=== PATIENT | female | born 1965 | race Caucasian/White ===

== ENCOUNTER 2016-06-08 11:56 | Emergency (ER) | payer OTHER ==
[2016-06-08 12:03] VITALS: BP 129/89; PULSE 69; TEMP 97.7; BMI 22.3
--- NOTE | 2016-06-08 13:17 | PDOC ---
History of Present Illness - General Chief Complaint: Rash Stated Complaint: BODY ITCH Time Seen by Provider: 06/08/16 12:22 History Source: Patient Exam Limitations: No Limitations - History of Present Illness Initial Comments: 06/08/16 13:12 Patient is here with complaints of bodyaches 2 months. States has used multiple medications, has used antihistamines and creams with minimal resolved. Denies any fever, ear or throat pain, however states feels has some pain and burning with her urine for the past 2 days. Denies fever nausea or vomiting. Denies vaginal drainage. Has appointment with special forces officer on Friday Timing/Duration: reports: constant, changing over time Severity: Yes: mild, moderate Location: reports: extremities (I merrily extremities, none on torso some itching to back.) Associated Symptoms: reports: change in skin texture. denies: blisters, fever, flushing, headache, hives, malaise, nasal congestion Past History - Travel Traveled outside of the country in the last 30 days: No Close contact w/someone who was outside of country & ill: No - Past Medical History Allergies/Adverse Reactions: Allergies Allergy/AdvReac Type Severity Reaction Status Date / Time No Known Allergies Allergy Verified 06/08/16 12:02 Home Medications: Ambulatory Orders Hydroxyzine HCl [Atarax -] 25 mg PO TID #21 tablet 06/08/16 Sulfamethoxazole/Trimethoprim [Bactrim *Ds*] 1 each PO BID #7 tablet 06/08/16 Other medical history: denies - Psycho/Social/Smoking Cessation Hx Suicidal Ideation: No Smoking History: Never smoked Information on smoking cessation initiated: No Hx Alcohol Use: No Drug/Substance Use Hx: No Substance Use Type: None Review of Systems - Review of Systems Able to Perform ROS?: Yes Is the patient limited Samoan proficient: Yes Constitutional: Yes: Symptoms Reported, See HPI, Malaise. No: Chills, Fever, Loss of Appetite HEENTM: Yes: See HPI. No: Symptoms Reported, Nose Pain, Nose Congestion Respiratory: Yes: See HPI. No: Symptoms reported, Cough, Shortness of Breath, Wheezing Musculoskeletal: Yes: See HPI. No: Symptoms Reported Integumentary: Yes: Symptoms Reported, See HPI, Pruritus, Rash Neurological: No: Symptoms reported All Other Systems: Reviewed and Negative *Physical Exam - Vital Signs Last Vital Signs Temp Pulse Resp BP Pulse Ox 97.7 F 69 18 129/89 98 06/08/16 12:00 06/08/16 12:00 06/08/16 12:00 06/08/16 12:00 06/08/16 12:00 - Physical Exam General Appearance: Yes: Nourished, Appropriately Dressed, Apparent Distress HEENT: positive: ROXY, Normal ENT Inspection, TMs Normal, Pharynx Normal Neck: positive: Supple. 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, Fully Oriented, Alert, Normal Mood/ Affect, Normal Response, Motor Strength 5/5 *DC/Admit/Observation/Transfer Diagnosis at time of Disposition: Pruritus Urinary tract infection Qualifiers: Urinary tract infection type: acute cystitis Hematuria presence: without hematuria Qualified Code(s): N30.00 - Acute cystitis without hematuria - Discharge Dispostion Disposition: HOME Condition at time of disposition: Stable Admit: No - Prescriptions Prescriptions: Hydroxyzine HCl [Atarax -] 25 mg PO TID #21 tablet Sulfamethoxazole/Trimethoprim [Bactrim *Ds*] 1 each PO BID #7 tablet - Referrals Referrals: Aurora Antonio [Primary Care Provider] - - Patient Instructions Printed Discharge Instructions: Urinary Tract Infection Additional Instructions: Chronic pruritus, will treat with Atarax Mild urinary Tract infection, will treat with Bactrim for 4 days total - Post Discharge Activity Work/School Note: Back to Work
[2016-06-08 13:23] LABS: URINE APPEARANCE CLEAR; URINE BILIRUBIN NEGATIVE (NEGATIVE); URINE BLOOD NEGATIVE (NEGATIVE); URINE COLOR YELLOW; URINE GLUCOSE (UA) NEGATIVE (NEGATIVE); URINE KETONE NEGATIVE (NEGATIVE); URINE LEUK ESTERASE NEGATIVE (NEGATIVE); URINE NITRITE POSITIVE (NEGATIVE); URINE PROTEIN NEGATIVE (NEGATIVE); URINE UROBILINOGEN 4.0 E.U/dl E.U./dl (0.2-1.0)
[2016-06-08 13:29] LABS: URINE BACTERIA MODERATE /hpf (NONE SEEN); URINE MUCUS FEW; URINE RBC 1 /hpf (0-3); URINE WBC 1 /hpf (3-5)
[2016-06-08] MEDS ORDERED: SULFAMETHOXAZOLE/TRIMETHOPRIM 800MG/160MG D.S. TABLET PO ONE (13:43)
[2016-06-08] MEDS ORDERED: SULFAMETHOXAZOLE/TRIMETHOPRIM 800MG/160MG D.S. TABLET ONE (14:02)
== END 2016-06-08 14:11 | disposition home or self-care (01) ==
LOC: JERFT 11:56
DX: N39.0 Urinary tract infection, site not specified (principal); L29.8 Other pruritus
CPT/HCPCS: 81003; 81015; 84703; 99281-25

== ENCOUNTER 2016-12-20 12:51 | Emergency (ER) | payer OTHER ==
[2016-12-20 13:02] VITALS: BP 118/83; PULSE 84; TEMP 98.1; BMI 22.1
--- NOTE | 2016-12-20 14:30 | PDOC ---
History of Present Illness - General Chief Complaint: Pain Stated Complaint: BODY ACHES Time Seen by Provider: 12/20/16 14:23 History Source: Patient Exam Limitations: No Limitations - History of Present Illness Initial Comments: 12/20/16 14:34 This is a 51-year-old woman without significant past medical history who presents for care today with body aches for 7-8 months. [facility] but is unsure of her diagnosis or any medication she takes only that it makes her sleepy but does not know why she takes it. She denies fevers, shortness of breath, cough, nausea, vomiting. She endorses diffuse chest pain which worsens with light palpation. The chest pain is been stable for the past 7 -8 months and started the same time as the body aches. Pain P- joints and muscles Q- achy R- no radiation S- 8/10 T- 7-8 months Timing/Duration: other (7-8 months) Past History - Travel Traveled outside of the country in the last 30 days: No Close contact w/someone who was outside of country & ill: No - Past Medical History Allergies/Adverse Reactions: Allergies Allergy/AdvReac Type Severity Reaction Status Date / Time No Known Allergies Allergy Verified 12/20/16 13:02 Home Medications: Ambulatory Orders Nitrofurantoin Monohyd/M-Cryst [Macrobid -] 100 mg PO BID #14 capsule 12/20/16 Other medical history: denies - Psycho/Social/Smoking Cessation Hx Suicidal Ideation: No Smoking History: Never smoked Information on smoking cessation initiated: No Hx Alcohol Use: No Drug/Substance Use Hx: No Substance Use Type: None Review of Systems - Review of Systems Able to Perform ROS?: Yes Is the patient limited Albanian proficient: No Constitutional: No: Symptoms Reported HEENTM: No: Symptoms Reported Respiratory: No: Symptoms reported Cardiac (ROS): No: Symptoms Reported ABD/GI: No: Symptoms Reported : No: Symptoms Reported Musculoskeletal: Yes: Back Pain, Joint Pain, Muscle Pain, Neck Pain Integumentary: No: Symptoms Reported Neurological: No: Symptoms reported *Physical Exam - Vital Signs Last Vital Signs Temp Pulse Resp BP Pulse Ox 98.1 F 84 18 118/83 100 12/20/16 13:01 12/20/16 13:01 12/20/16 13:01 12/20/16 13:01 12/20/16 13:01 - Physical Exam General Appearance: Yes: Appropriately Dressed. No: Apparent Distress HEENT: positive: EOMI, ROXY, Normal ENT Inspection, Normal Voice Neck: positive: Trachea midline, Supple. negative: Tender Respiratory/Chest: positive: Lungs Clear, Normal Breath Sounds. negative: Chest Tender, Respiratory Distress, Accessory Muscle Use Cardiovascular: positive: Regular Rhythm, Regular Rate, S1, S2 Gastrointestinal/Abdominal: positive: Normal Bowel Sounds, Soft. negative: Tender, Organomegaly Musculoskeletal: positive: Normal Inspection. 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 [facility] but is unsure of her diagnosis or any medication she takes only that it makes her sleepy but does not know why she takes it. She denies fevers, shortness of breath, cough, nausea, vomiting. She endorses diffuse chest pain which worsens with light palpation. The chest pain is been stable for the past 7 -8 months and started the same time as the body aches. P: - EKG, urine , Motrin, CXR - Likely discharge if all testing is normal. 12/20/16 16:14 EKG- NSR with rate 65 CXR as read by Dr. Steele- Lung rosales appear clear without evidence of infiltrate or effusion. Cardiac silhouette is within normal limits. Visualized bony structures appear intact. Will discharge with PMD f/u. 12/20/16 16:29 UA (+) UTI will treat with macrobid *DC/Admit/Observation/Transfer Diagnosis at time of Disposition: Arthralgia Qualifiers: Joint pain location: unspecified Qualified Code(s): M25.50 - Pain in unspecified joint Urinary tract infection Qualifiers: Urinary tract infection type: site unspecified Hematuria presence: without hematuria Qualified Code(s): N39.0 - Urinary tract infection, site not specified - Discharge Dispostion Disposition: HOME Condition at time of disposition: Stable Admit: No - Prescriptions Prescriptions: Nitrofurantoin Monohyd/M-Cryst [Macrobid -] 100 mg PO BID #14 capsule - Referrals Referrals: Aurora Antonio [Primary Care Provider] - - Patient Instructions Printed Discharge Instructions: DI for Arthralgia Additional Instructions: Take Tylenol or Motrin for pain as directed by manufacturers instructions. See your regular doctor at previously scheduled appointment. Return to emergency department for any fevers, worsening pain, increased bruising, or any other concerns. Thank you very much for choosing us to provide urine emergent medical care. Print Language: UPPER SORBIAN
[2016-12-20 15:12] LABS: URINE APPEARANCE SLCLOUDY; URINE BILIRUBIN NEGATIVE (NEGATIVE); URINE BLOOD NEGATIVE (NEGATIVE); URINE COLOR YELLOW; URINE GLUCOSE (UA) NEGATIVE (NEGATIVE); URINE KETONE NEGATIVE (NEGATIVE); URINE NITRITE POSITIVE (NEGATIVE); URINE PROTEIN NEGATIVE (NEGATIVE); URINE UROBILINOGEN 4.0 E.U/dl mg/dL (0.2-1.0)
[2016-12-20 15:13] LABS: URINE LEUK ESTERASE 1+ (NEGATIVE)
[2016-12-20 15:16] LABS: URINE BACTERIA MANY /hpf (NONE SEEN); URINE MUCUS RARE; URINE RBC 3 /hpf (0-3); URINE WBC 21 /hpf (3-5)
--- NOTE | 2016-12-21 09:24 | EKG ---
Test Reason : Blood Pressure : / mmHG Vent. Rate : 065 BPM Atrial Rate : 065 BPM P-R Int : 152 ms QRS Dur : 068 ms QT Int : 408 ms P-R-T Axes : 044 043 040 degrees QTc Int : 424 ms NORMAL SINUS RHYTHM NORMAL ECG NO PREVIOUS ECGS AVAILABLE Confirmed by MD SHAGUFTA, KATI ([id number]) on 12/21/2016 9:23:29 AM Referred By: ARMOND Confirmed By:KATI EAGLE MD
== END 2016-12-20 16:21 | disposition home or self-care (01) ==
LOC: JERFT 12:51
DX: N39.0 Urinary tract infection, site not specified (principal); B96.89 Other specified bacterial agents as the cause of diseases classified elsewhere; M25.50 Pain in unspecified joint
CPT/HCPCS: 71020-TC; 81003; 81015; 84703; 87086; 87186; 93005; 93010; 99282-25

== ENCOUNTER 2017-01-10 22:17 | Emergency (ER) | payer OTHER ==
[2017-01-10 22:36] VITALS: BP 127/79; PULSE 75; TEMP 98.1; BMI 21.6
[2017-01-10 22:54] LABS: URINE APPEARANCE CLOUDY; URINE BILIRUBIN NEGATIVE (NEGATIVE); URINE BLOOD NEGATIVE (NEGATIVE); URINE COLOR YELLOW; URINE GLUCOSE (UA) NEGATIVE (NEGATIVE); URINE KETONE NEGATIVE (NEGATIVE); URINE NITRITE NEGATIVE (NEGATIVE); URINE PROTEIN NEGATIVE (NEGATIVE)
--- NOTE | 2017-01-10 23:14 | PDOC ---
*Physical Exam - Vital Signs Last Vital Signs Temp Pulse Resp BP Pulse Ox 98.1 F 75 17 127/79 100 01/10/17 22:28 01/10/17 22:28 01/10/17 22:28 01/10/17 22:28 01/10/17 22:28 ED Treatment Course - ADDITIONAL ORDERS Additional order review: Laboratory Results 01/10/17 22:43 Urine HCG, Qual Negative Medical Decision Making - Medical Decision Making 01/10/17 23:13 Pt seen by the Advanced Practice Provider under my direct supervision Ancillary studies reviewed I agree with plan as outlined by the Advanced Practice Provider [facility] *DC/Admit/Observation/Transfer Diagnosis at time of Disposition: Urinary tract infection, Arthralgia - Discharge Dispostion Disposition: HOME Condition at time of disposition: Stable - Prescriptions Prescriptions: Amoxicillin/Potassium Clav [Augmentin 875-125 Tablet] 1 each PO Q12H #28 tablet - Referrals Referrals: Doyle Bassett MD [Staff Physician] - Nitin Mandujano MD., MD [Staff Physician] - Aurora Antonio [Primary Care Provider] - - Patient Instructions Printed Discharge Instructions: DI for Urinary Tract Infection (UTI), DI for Arthralgia Additional Instructions: Seguimiento con el doctor Delbert (Urologa) sobre infecciones urinarias resistentes y recurrentes. Llame esta semana para la sebastien ms morales. Tambin , llame al doctor Nicole (ortopedista) con respecto al dolor de espalda, dolor de cadera y rodilla. Everly Motrin o Tylenol para el dolor. Regrese si dennis s ntomas empeoran. Follow up with doctor Mandujano (Urology) concerning resistant and recurrent urinary tract infections. Call this week for earliest appointment. Also, call doctor Bassett (Orthopedist) regarding back pain, hip and knee pain. Take Motrin or Tylenol for pain. Return if your symptoms worsen. Print Language: TURKMEN
[2017-01-10 23:23] LABS: URINE LEUK ESTERASE 2+ (NEGATIVE)
[2017-01-10 23:24] LABS: URINE BACTERIA MODERATE /hpf (NONE SEEN); URINE RBC 3 /hpf (0-3); URINE WBC 100 /hpf (3-5)
[2017-01-10 23:25] LABS: URINE MUCUS RARE
[2017-01-10] MEDS ORDERED: LIDOCAINE HCL 1%, 10 MG/ML (50 mL VIAL) INF ONE (23:52)
--- NOTE | 2017-01-11 00:01 | PDOC ---
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 Patient states symptoms began today while resting at home. Patient recently seen in this ED 12/20/2016 for similar symptoms and found to have UTI. Patient treated with Macrobid and discharge home with instructions to follow up with PCP and take Motrin for pain. Patient states she took Macrobid x 7 days as prescribed with no relief. Patient denies fever, CP, Abd pain, Diff breathing, coughing, congestion, or any other complaints at this time. LNMP: Jan 01. Past History - Travel Traveled outside of the country in the last 30 days: No - Past Medical History Allergies/Adverse Reactions: Allergies Allergy/AdvReac Type Severity Reaction Status Date / Time No Known Allergies Allergy Verified 01/10/17 22:31 Home Medications: Ambulatory Orders Nitrofurantoin Monohyd/M-Cryst [Macrobid -] 100 mg PO BID #14 capsule 12/20/16 Amoxicillin/Potassium Clav [Augmentin 875-125 Tablet] 1 each PO Q12H #28 tablet 01/11/17 - Immunization History Immunization Up to Date: Yes - Suicide/Smoking/Psychosocial Hx Smoking History: Never smoked Have you smoked in the past 12 months: No Information on smoking cessation initiated: No Hx Alcohol Use: No Drug/Substance Use Hx: No Substance Use Type: None Review of Systems - Review of Systems Able to Perform ROS?: Yes Is the patient limited Romansh proficient: Yes Constitutional: No: Chills, Fever, Weakness Respiratory: No: Cough, Shortness of Breath, Stridor, Wheezing Cardiac (ROS): No: Chest Pain, Chest Tightness ABD/GI: No: Diarrhea, Nausea, Poor Appetite, Poor Fluid Intake, Vomiting, Abdominal cramping : Yes: Dysuria. No: Burning, Discharge, Flank Pain, Hematuria Musculoskeletal: Yes: Muscle Pain. No: Back Pain, Muscle Weakness Integumentary: No: Bruising, Erythema, Rash Neurological: No: Headache All Other Systems: Reviewed and Negative *Physical Exam - Vital Signs Last Vital Signs Temp Pulse Resp BP Pulse Ox 98.1 F 75 17 127/79 100 01/10/17 22:28 01/10/17 22:28 01/10/17 22:28 01/10/17 22:28 01/10/17 22:28 - Physical Exam General Appearance: Yes: Nourished, Appropriately Dressed, Mild Distress. No: Apparent Distress, Moderate Distress, Severe Distress Respiratory/Chest: positive: Lungs Clear, Normal Breath Sounds. negative: Chest Tender, Respiratory Distress, Accessory Muscle Use, Labored Respiration, Rapid RR, Paradoxal Breathing, Rhonchi, Stridor, Wheezing Cardiovascular: positive: Regular Rhythm, Regular Rate. negative: Tachycardia Gastrointestinal/Abdominal: positive: Normal Bowel Sounds, Soft. negative: Tender, Distended, Guarding, Rebound, Tenderness Musculoskeletal: positive: Normal Inspection. negative: CVA Tenderness, Decreased Range of Motion, Vertebral Tenderness Extremity: positive: Normal Capillary Refill, Normal Inspection, Normal Range of Motion. 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 Concern for resistant bacteria. Will give 500mg IM Rocephin and give po abx. Refer patient to Urology. *DC/Admit/Observation/Transfer Diagnosis at time of Disposition: Urinary tract infection Qualifiers: Urinary tract infection type: urethritis Qualified Code(s): N34.2 - Other urethritis Arthralgia Qualifiers: Joint pain location: hip Laterality: right Qualified Code(s): M25.551 - Pain in right hip - Discharge Dispostion Disposition: HOME Condition at time of disposition: Stable Admit: No - Prescriptions Prescriptions: Amoxicillin/Potassium Clav [Augmentin 875-125 Tablet] 1 each PO Q12H #28 tablet - Referrals Referrals: Aurora Antonio [Primary Care Provider] - Nitin Mandujano MD., MD [Staff Physician] - Doyle Bassett MD [Staff Physician] - - Patient Instructions Printed Discharge Instructions: DI for Urinary Tract Infection (UTI), DI for Arthralgia Additional Instructions: Seguimiento con el doctor Delbert (Urologa) sobre infecciones urinarias resistentes y recurrentes. Llame esta semana para la sebastien ms andrew. Tambin , llame al doctor Nicole (ortopedista) con respecto al dolor de espalda, dolor de cadera y rodilla. [place] Motrin o Tylenol para el dolor. Regrese si dennis s ntomas empeoran. Follow up with doctor Mandujano (Urology) concerning resistant and recurrent urinary tract infections. Call this week for earliest appointment. Also, call doctor Bassett (Orthopedist) regarding back pain, hip and knee pain. Take Motrin or Tylenol for pain. Return if your symptoms worsen. Print Language: [email or web address]
[2017-01-11] MEDS ORDERED: cefTRIAXone SODIUM 1 GM VIAL ONE (00:13)
[2017-01-11] MEDS ORDERED: LIDOCAINE HCL 1%, 10 MG/ML (20ML VIAL) ONE (00:14)
== END 2017-01-11 00:27 | disposition home or self-care (01) ==
LOC: JER 22:17
DX: N34.2 Other urethritis (principal); M25.551 Pain in right hip
CPT/HCPCS: 81003; 81015; 84703; 87086; 87186; 96372; 99283-25

== ENCOUNTER 2018-05-21 08:41 | Emergency (ER) | payer SELFPAY ==
[2018-05-21 08:48] VITALS: BP 116/68; PULSE 77; TEMP 98.5; BMI 24.1
--- NOTE | 2018-05-21 09:56 | PDOC ---
History of Present Illness - General Chief Complaint: Pain Stated Complaint: LT SHOULDER PAIN/lower back pain/uti symptoms Time Seen by Provider: 05/21/18 09:06 History Source: Patient Exam Limitations: No Limitations - History of Present Illness Initial Comments: 05/21/18 19:29 Patient is a 52-year-old female who comes into the ER with 3 days of back pain, right shoulder pain and foul-smelling urine. Patient states that she has pain when she moves her arms and bends over. 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 She is concerned that she might have a kidney infection as she noticed her urine was swelling and she had the back pain. She presents for evaluation. She was seen at [facility] yesterday and diagnosed with a muscle spasm and sent home with naproxen and Flexeril. She states that those medications didn't help. Denies fevers, chills, nausea, vomiting, diarrhea, shortness of breath, difficulty breathing, lightheadedness, fall and dizziness. Past History - Travel Traveled outside of the country in the last 30 days: No Close contact w/someone who was outside of country & ill: No - Past Medical History Allergies/Adverse Reactions: Allergies Allergy/AdvReac Type Severity Reaction Status Date / Time No Known Allergies Allergy Verified 05/21/18 08:45 Home Medications: Ambulatory Orders Nitrofurantoin Monohyd/M-Cryst [Macrobid -] 100 mg PO BID #14 capsule 12/20/16 Amoxicillin/Potassium Clav [Augmentin 875-125 Tablet] 1 each PO Q12H #28 tablet 01/11/17 COPD: No - Immunization History Immunization Up to Date: Yes - Suicide/Smoking/Psychosocial Hx Smoking History: Never smoked Have you smoked in the past 12 months: No Information on smoking cessation initiated: No Hx Alcohol Use: No Drug/Substance Use Hx: No Substance Use Type: None Review of Systems - Review of Systems Able to Perform ROS?: Yes Comments:: 05/21/18 10:27 CONSTITUTIONAL: Absent: fever, chills, diaphoresis, generalized weakness, malaise, loss of appetite HEENT: Absent: rhinorrhea, nasal congestion, throat pain, throat swelling, difficulty swallowing, mouth swelling, ear pain, eye pain, visual Changes CARDIOVASCULAR: Absent: chest pain, loss of consciousness, palpitations, irregular heart rate, peripheral edema RESPIRATORY: Absent: cough, shortness of breath, dyspnea with exertion, orthopnea, wheezing, stridor, hemoptysis GASTROINTESTINAL: Absent: abdominal pain, abdominal distension, nausea, vomiting, diarrhea, constipation, melena, hematochezia GENITOURINARY: Present: foul smelling urine Absent: dysuria, frequency, urgency, hesitancy, hematuria, flank pain, genital pain MUSCULOSKELETAL: Present: R shoulder pain, R back pain/flank pain Absent: myalgia, arthralgia, joint swelling SKIN: Absent: rash, itching, pallor HEMATOLOGIC/IMMUNOLOGIC: Absent: easy bleeding, easy bruising, lymphadenopathy, frequent infections ENDOCRINE: Absent: unexplained weight gain, unexplained weight loss, heat intolerance, cold intolerance NEUROLOGIC: Absent: headache, focal weakness or paresthesias, dizziness, unsteady gait, seizure, mental status changes, bladder or bowel incontinence PSYCHIATRIC: Absent: anxiety, depression, suicidal or homicidal ideation, hallucinations. Is the patient limited Nepali proficient: No *Physical Exam - Vital Signs Last Vital Signs Temp Pulse Resp BP Pulse Ox 98.5 F 77 16 116/68 100 05/21/18 08:45 05/21/18 08:45 05/21/18 08:45 05/21/18 08:45 05/21/18 08:45 - Physical Exam Comments: 05/21/18 18:28 GENERAL: Well developed, well nourished. Awake and alert. No acute distress. HEENT: Normocephalic, atraumatic. PERRLA, EOMI. No conjunctival pallor. Sclera are non- icteric. Moist mucous membranes. Oropharynx is clear. NECK: Supple. Full ROM. No JVD. Carotid pulses 2+ and symmetric, without bruits. No thyromegaly. No lymphadenopathy. CARDIOVASCULAR: Regular rate and rhythm. No murmurs, rubs, or gallops. Distal pulses are 2+ and symmetric. PULMONARY: No evidence of respiratory distress. Lungs clear to auscultation bilaterally. No wheezing, rales or rhonchi. ABDOMINAL: Soft. Non-tender. Non-distended. No rebound or guarding. No organomegaly. Normoactive bowel sounds. MUSCULOSKELETAL Pain with external rotation of the R shoulder. Negative drop arm test, empty can test. TTP of the R lower paraspinous muscles L2-L4. (-) straight leg raise. No midline tenderness. (+) CVA tenderness on the R. Normal range of motion at all joints. No bony deformities or tenderness. EXTREMITIES: No cyanosis. No clubbing. No edema. No calf tenderness. SKIN: Warm and dry. Normal capillary refill. No rashes. No jaundice. NEUROLOGICAL: Alert, awake, appropriate. Cranial nerves 2-12 intact. No deficits to light touch and temperature in face, upper extremities and lower extremities. No motor deficits in the in face, upper extremities and lower extremities. Normoreflexic in the upper and lower extremities. Normal speech. Toes are down- going bilaterally. Gait is normal without ataxia. PSYCHIATRIC: Cooperative. Good eye contact. Appropriate mood and affect. Moderate Sedation - Procedure Monitoring Vital Signs: Procedure Monitoring Vital Signs Temperature 98.5 F 05/21/18 08:45 Pulse Rate 77 05/21/18 08:45 Respiratory Rate 16 05/21/18 08:45 Blood Pressure 116/68 05/21/18 08:45 O2 Sat by Pulse Oximetry (%) 100 05/21/18 08:45 ED Treatment Course - LABORATORY CBC & Chemistry Diagram: 05/21/18 10:00 05/21/18 10:00 Medical Decision Making - Medical Decision Making 05/21/18 19:31 Patient is a 52-year-old female who presents for evaluation of right lower back pain, right shoulder pain and foul-smelling urine. Given history concern for pyelonephritis. Urine and labs were ordered. Urine showed no signs of infection. Blood work showed no leukocytosis electrolytes were normal. Most likely a muscle strain of the low back. Most likely a shoulder impingement of the right arm given pain with external rotation. Toradol given with relief of symptoms. Discharge home with ortho follow-up. I discussed the physical exam findings, ancillary test results and final diagnoses with the patient. I answered all of the patient's questions. The patient was satisfied with the care received and felt comfortable with the discharge plan and treatment plan. The Patient agrees to follow up with the primary care physician/specialist within 24-72 hours. Return precautions were given. *DC/Admit/Observation/Transfer Diagnosis at time of Disposition: Low back pain Qualifiers: Chronicity: acute Back pain laterality: right Sciatica presence: without sciatica Qualified Code(s): M54.5 - Low back pain Shoulder pain Qualifiers: Chronicity: acute Laterality: right Qualified Code(s): M25.511 - Pain in right shoulder - Discharge Dispostion Disposition: HOME Condition at time of disposition: Stable Decision to Admit order: No - Referrals Referrals: Vicente Deleon MD [Staff Physician] - - Patient Instructions Printed Discharge Instructions: DI for Low Back Pain, DI for Shoulder Pain Additional Instructions: You have low back pain and shoulder pain due to a muscle spasm. Please take the naproxen and flexeril that were previously prescribed as directed. Do not drive after taking this medication as it may make you sleepy. You may use warm compresses on your back to help with her symptoms. Please follow-up with your primary care doctor. If your symptoms do not resolve in 3-5 days, follow-up with orthopedics. A referral has been provided for you. Return to the emergency department if you have worsening back pain, bladder or bowel incontinence, numbness and tingling in her legs, changes in the way you walk, or any new or worsening symptoms. - Post Discharge Activity Forms/Work/School Notes: Back to Work
[2018-05-21 09:59] LABS: HCG,QUALITATIVE URINE Negative
[2018-05-21 10:11] LABS: URINE APPEARANCE SLCLOUDY; URINE BILIRUBIN NEGATIVE (<2.0 mg/dL); URINE COLOR YELLOW; URINE GLUCOSE (UA) NEGATIVE (NEGATIVE); URINE KETONE NEGATIVE (NEGATIVE); URINE LEUK ESTERASE NEGATIVE (NEGATIVE); URINE NITRITE NEGATIVE (NEGATIVE); URINE PROTEIN NEGATIVE (NEGATIVE); URINE UROBILINOGEN NEGATIVE mg/dL (0.2-1.0)
[2018-05-21] MEDS ORDERED: IBUPROFEN 600 MG TABLET (FP) PO ONE (10:20)
[2018-05-21 10:42] LABS: BASO % 0.3 % (0-2.0); EOS % 1.4 % (0-4.5); HEMATOCRIT 34.5 % (32.4-45.2); HEMOGLOBIN 11.8 GM/dL (10.7-15.3); LYMPH % 29.2 % (8-40); MCH 32.7 pg (25.7-33.7); MCHC 34.3 g/dl (32.0-36.0); MEAN CELL VOLUME 95.4 fl (80-96); MEAN PLT VOLUME 9.7 fl (7.5-11.1); MONO % 5.6 % (3.8-10.2); NEUT % 63.5 % (42.8-82.8); PLATELET COUNT 209 K/MM3 (134-434); RBC 3.61 M/mm3 (3.60-5.2); RDW 11.9 % (11.6-15.6); WHITE BLOOD COUNT 4.9 K/mm3 (4.0-10.0)
[2018-05-21 11:09] LABS: ALBUMIN 3.8 g/dl (3.4-5.0); ALK PHOS 68 U/L (45-117); ANION GAP 3 MMOL/L (8-16); BILIRUBIN,TOTAL 0.5 mg/dL (0.2-1); BLOOD UREA NITROGEN 21 mg/dL (7-18); CHLORIDE 109 mmol/L (98-107); CO2 27 mmol/L (21-32); CREATININE 0.7 mg/dL (0.55-1.3); GLUCOSE,RANDOM 95 mg/dL (74-106); POTASSIUM 4.1 mmol/L (3.5-5.1); SGOT/AST 16 U/L (15-37); SGPT/ALT 17 U/L (13-61); SODIUM 139 mmol/L (136-145); TOT PROT 7.2 g/dl (6.4-8.2)
[2018-05-21] MEDS ORDERED: LIDOCAINE 5% TOPICAL PATCH TP ONE (11:40)
[2018-05-21] MEDS ORDERED: KETOROLAC TROMETHAMINE 60 MG/2 ML VIAL IM ONE (11:40)
[2018-05-21] MEDS ORDERED: KETOROLAC TROMETHAMINE 60 MG/2 ML VIAL ONE (11:49)
[2018-05-21] MEDS ORDERED: LIDOCAINE 5% TOPICAL PATCH ONE (11:50)
[2018-05-21] MEDS ORDERED: LIDOCAINE PATCH REMOVAL MC SCH (22:00)
== END 2018-05-21 11:53 | disposition home or self-care (01) ==
LOC: JERFT 08:41
DX: M54.5 Low back pain (principal); M25.511 Pain in right shoulder
CPT/HCPCS: 36415; 80053; 81003; 84703; 85025; 87086; 87186; 99281-25

== ENCOUNTER 2020-03-22 15:15 | Emergency (ER) | payer OTHER ==
[2020-03-22 15:49] VITALS: BP 136/84; PULSE 80; TEMP 98.2; BMI 26.6
[2020-03-22] MEDS ORDERED: KETOROLAC TROMETHAMINE 60 MG/2 ML VIAL IM ONE (16:23)
[2020-03-22] MEDS ORDERED: morphine CARPU-JECT 4 MG/1 ML DISP.SYRIN IM ONE (16:23)
[2020-03-22] MEDS ORDERED: KETOROLAC TROMETHAMINE 60 MG/2 ML VIAL ONE (16:37)
[2020-03-22] MEDS ORDERED: morphine SULFATE 4 MG/ML VIAL ONE (16:42)
== END 2020-03-22 17:58 | disposition home or self-care (01) ==
LOC: JERFT 15:15
PROC: 3E0233Z Introduction of Anti-inflammatory into Muscle, Percutaneous Approach (ICD-10-PCS; principal; 2020-03-22)
PROC: 3E023NZ Introduction of Analgesics, Hypnotics, Sedatives into Muscle, Percutaneous Approach (ICD-10-PCS; 2020-03-22)
DX: M54.5 Low back pain (principal)
CPT/HCPCS: 99284-25

== ENCOUNTER 2024-07-02 14:06 | Emergency (ER) | payer OTHER ==
[2024-07-02] MEDS ORDERED: ACETAMINOPHEN 325 MG TABLET (FP) ONE (14:47)
[2024-07-02] MEDS ORDERED: IBUPROFEN 400 MG TABLET (FP) PO ONE (14:47)
[2024-07-02] MEDS: ACETAMINOPHEN 325 MG TABLET (FP) PO ONE (14:53)
[2024-07-02] MEDS: IBUPROFEN 400 MG TABLET (FP) PO ONE (14:53)
[2024-07-02 14:56] VITALS: BP 130/80; PULSE 78; RESP 16; TEMP 98.2; BMI 28.2
== END 2024-07-02 16:46 | disposition home or self-care (01) ==
LOC: JERFT 14:06
DX: S99.911A Unspecified injury of right ankle, initial encounter (principal); W01.0XXA Fall on same level from slipping, tripping and stumbling without subsequent striking against object, initial encounter
CPT/HCPCS: 73562-TC-RT-FY; 73610-TC-RT-FY; 73630-TC-RT-FY; 99283-25